=== PATIENT | male | born 1995 | race Caucasian/White ===

== ENCOUNTER 2023-12-21 16:48 | Emergency (ER) | payer SELFPAY ==
[2023-12-21 17:10] VITALS: BP 159/90; PULSE 71; TEMP 37.1; O2SAT 100; BMI 33.6
== END 2023-12-21 18:13 | disposition left against medical advice (07) ==
PROVIDERS: Emergency Provider Emergency Medicine
DX: Z53.21 Procedure and treatment not carried out due to patient leaving prior to being seen by health care provider (principal)

== ENCOUNTER 2023-12-24 17:05 | Emergency (ER) | payer SELFPAY ==
[2023-12-24 17:20] VITALS: BP 175/100; PULSE 70; TEMP 37; O2SAT 95; BMI 33.0
--- NOTE | 2023-12-24 20:51 | ED.SKABFB1 ---
HPI - Skin/Abscess/Foreign Bdy General Chief complaint: Skin/Abscess/Foreign Body Stated complaint: RASH Time Seen by Provider: 12/24/23 17:32 Source: patient Mode of arrival: walk-in Limitations: no limitations History of Present Illness HPI narrative: . presents with rash that started btw his butt cheeks and he thought it was a heat rash. Started about 3 months ago and has now spread to his genitals. mild itching . no abdominal pain Related Data Home Medications ?Medication ?Instructions ?Recorded ?Confirmed No Known Home Medications 12/21/23 12/24/23 Allergies Allergy/AdvReac Type Severity Reaction Status Date / Time No Known Drug Allergies Allergy Verified 12/24/23 17:19 Review of Systems ROS Status of ROS 10 or more systems reviewed and unremarkable except as noted in history and below Exam Constitutional Vital Signs, click to edit/add: Last Vital Signs Temp 98.6 F 12/24/23 17:20 Pulse 70 12/24/23 17:20 Resp 18 12/24/23 17:20 BP 175/100 H 12/24/23 17:20 Pulse Ox 95 12/24/23 17:20 O2 Del Method Room Air 12/24/23 17:20 Common normals: no apparent distress, average body habitus, oriented x3, no limitations, healthy appearing, alert and well nourished [facility] Common normals: normocephalic and head/scalp atraumatic Eye Common normals: EOMs intact bilaterally and conjunctivae normal Respiratory Common normals: normal respiratory effort, no retractions and no use of accessory muscles GI Common normals: Normal to inspection, nondistended, normoactive bowel sounds present and soft to palpation Other: tinea rash of genitalia and btw buttocks Extremity Common normals: normal to inspection and full ROM Neuro Common normals: oriented x3, CN's II-XII intact bilaterally, moves all extremities and no focal motor deficits Psych Appearance: grossly normal Course Vital Signs Vital signs: Vital Signs Temperature 98.6 F 12/24/23 17:20 Pulse Rate 70 12/24/23 17:20 Respiratory Rate 18 12/24/23 17:20 Blood Pressure 175/100 H 12/24/23 17:20 Pulse Oximetry 95 12/24/23 17:20 Oxygen Delivery Method Room Air 12/24/23 17:20 Temperature 98.6 F 12/24/23 17:20 Pulse Rate 70 12/24/23 17:20 Respiratory Rate 18 12/24/23 17:20 Blood Pressure 175/100 H 12/24/23 17:20 Pulse Oximetry 95 12/24/23 17:20 Oxygen Delivery Method Room Air 12/24/23 17:20 MDM - Skin/Abscess/Foreign Bdy MDM Narrative Medical decision making narrative: patient presents with tinea rash ongoing for past 3 months and slowly spreading from his buttocks to his genitalia. will plan to treat with combination of fluconazole and Mycolog 2 cream Discharge Plan Discharge Stand Alone Forms: Portal Instructions Chief Complaint: Skin/Abscess/Foreign Body Clinical Impression: Tinea corporis Patient Disposition: Home, Self-Care Prescriptions / Home Meds: No Action No Known Home Medications Print Language: Faroese Instructions: Tinea Corporis (ED) Referrals: Physician,Non-Staff, [Primary Care Provider] - 1 week
== END 2023-12-24 21:07 | disposition home or self-care (01) ==
PROVIDERS: Emergency Provider Internal Medicine
DX: B35.4 Tinea corporis (principal)
CPT/HCPCS: 99283

== ENCOUNTER 2024-01-15 23:56 | Emergency (ER) | payer SELFPAY ==
[2024-01-16 00:14] VITALS: BP 188/97; PULSE 94; TEMP 36.8; O2SAT 97
--- NOTE | 2024-01-16 00:56 | PC.NURSE ---
States Jock itch that has improved but remains. Seen here for it , feels like he needs a little more prescription medicine
--- NOTE | 2024-01-16 01:13 | ED_ITS ---
HPI - Skin/Abscess/Foreign Bdy General Chief complaint: Skin/Abscess/Foreign Body Stated complaint: male issues Time Seen by Provider: 01/16/24 01:08 Source: patient Mode of arrival: walk-in Limitations: no limitations History of Present Illness HPI narrative: seen here about 3 weeks ago. At that visit found to have tinea infection between his buttocks, on his scrotum and phallus. Returns now stating he is much better but still has rash around the base of his crown.States he ran out of medication and wanted a refill. No urinary symptoms Related Data Home Medications ?Medication ?Instructions ?Recorded ?Confirmed No Known Home Medications 12/21/23 12/24/23 Allergies Allergy/AdvReac Type Severity Reaction Status Date / Time No Known Drug Allergies Allergy Verified 01/16/24 00:18 Review of Systems ROS Status of ROS 10 or more systems reviewed and unremark able except as noted in history and below Exam Constitutional Vital Signs, click to edit/add: Last Vital Signs Temp 98.3 F 01/16/24 00:14 Pulse 94 H 01/16/24 00:14 Resp 16 01/16/24 00:14 BP 188/97 H 01/16/24 00:14 Pulse Ox 97 01/16/24 00:14 O2 Del Method Room Air 01/16/24 00:14 Common normals: no apparent distress, average body habitus, oriented x3, no limitations, healthy appearing, alert and well nourished [facility] Common normals: normocephalic and head/scalp atraumatic Eye Common normals: PERRL and EOMs intact bilaterally Respiratory Common normals: normal respiratory effort, no retractions and no use of accessory muscles GI Common normals: Normal to inspection, nondistended, normoactive bowel sounds present Other: erythematous band around base of the crown Extremity Common normals: normal to inspection and full ROM Neuro Common normals: oriented x3, CN's II-XII intact bilaterally, moves all extremities and no focal motor deficits Psych Appearance: grossly normal Course Vital Signs Vital signs: Vital Signs Temperature 98.3 F 01/16/24 00:14 Pulse Rate 94 H 01/16/24 00:14 Respiratory Rate 16 01/16/24 00:14 Blood Pressure 188/97 H 01/16/24 00:14 Pulse Oximetry 97 01/16/24 00:14 Oxygen Delivery Method Room Air 01/16/24 00:14 Temperature 98.3 F 01/16/24 00:14 Pulse Rate 94 H 01/16/24 00:14 Respiratory Rate 16 01/16/24 00:14 Blood Pressure 188/97 H 01/16/24 00:14 Pulse Oximetry 97 01/16/24 00:14 Oxygen Delivery Method Room Air 01/16/24 00:14 MDM - Skin/Abscess/Foreign Bdy MDM Narrative Medical decision making narrative: patient presents with tinea cruris. has rash limited to the base of his crown. No urinary symptoms. Seen 3 weeks ago for similar rash that was more widespread and included his phallus, btw his buttocks and on his scrotum. Now rash is just limited to the phallus but his medication has run out. Discharged with prescrip tion for ketoconazole cream and Diflucan. advised to follow up with his doctor for recheck Discharge Plan Discharge Stand Alone Forms: Portal Instructions Chief Complaint: Skin/Abscess/Foreign Body Clinical Impression: Tinea cruris Patient Disposition: Home, Self-Care Prescriptions / Home Meds: No Action No Known Home Medications Print Language: Brazilian Instructions: Skin Yeast Infection (ED) Additional Instructions: follow up with your doctor next week Referrals: Physician,Non-Staff, MD [Primary Care Provider] - 1 week
== END 2024-01-16 01:25 | disposition home or self-care (01) ==
PROVIDERS: Emergency Provider Internal Medicine
DX: B35.6 Tinea cruris (principal)
CPT/HCPCS: 99283

== ENCOUNTER 2025-02-26 15:24 | Inpatient (IN) | payer SELFPAY ==
[2025-02-26] VITALS (8 sets, daily range): BP systolic 129–162; BP diastolic 79–100; PULSE 69–87; TEMP 36.6–36.8; O2SAT 96–97; BMI 34.3; BMI 35.7
[2025-02-26] MEDS: 0.9 % SODIUM CHLORIDE 1,000 ML 999 ML IV (15:54)
[2025-02-26] MEDS: KETOROLAC TROMETHAMINE 30 MG/ML VIAL IVP (15:54)
--- NOTE | 2025-02-26 15:58 | ED_ITS ---
HPI - Abdominal Pain General Chief Complaint: Abdominal Pain Stated Complaint: STOMACH PAIN Time Seen by Provider: 02/26/25 15:34 Source: patient and family Mode of arrival: walk-in Limitations: no limitations History of Present Illness HPI narrative: 29-year-old male with no significant past medical history presents with mid- abdominal cramping and pressure-like pain that began this morning upon waking. Pain is intermittent through today, baseline 3/10, peaking at 8/10 during episodes that last a few minutes and occasionally radiate to lower abdomen. No nausea or vomiting until arrival; reports one episode of nausea that improved with Zofran. Denies bowel or urinary changes, fever, chest pain, shortness of breath, lightheadedness, or dizziness. No recent dietary changes. Drinks alcohol daily, denies drug use, smokes daily. Started taking a probiotic 5 days ago. Related Data Home Medications ?Medication ?Instructions ?Recorded ?Confirmed No Known Home Medications 12/21/2302/12 Allergies Allergy/AdvReac Type Severity Reaction Status Date / Time No Known Drug Allergies Allergy Verified 02/26/25 15:35 PFSH PFSH Social History Little interest or pleasure in doing things: not at all Feeling down, depressed, or hopeless: not at all Exam Narrative Exam Narrative: General: Alert, oriented ?3, no acute distress HEENT: Oral mucosa moist, no signs of dehydration Cardiac: Regular rate and rhythm, no murmurs Respiratory: Lungs clear to auscultation bilaterally Abdomen: Tenderness to palpation in the epigastric region and just umbilical no rebound or guarding, no lower abdominal tenderness, nondistended Extremities: Normal sensation, no edema Neuro: Mentating at baseline, gait normal Skin: Warm, dry, no jaundice Constitutional Vital Signs, click to edit/add: Last Vital Signs Temp 98.3 F 02/26/25 15:35 Pulse 78 02/26/25 17:30 Resp 18 02/26/25 17:30 BP 162/86 H 02/26/25 17:30 Pulse Ox 97 02/26/25 17:30 O2 Del Method Room Air 02/26/25 17:30 Course Vital Signs Vital signs: Vital Signs Temperature 98.3 F 02/26/25 15:35 Pulse Rate 87 02/26/25 15:35 Respiratory Rate 18 02/26/25 15:35 Blood Pressure 161/100 H 02/26/25 15:35 Pulse Oximetry 97 02/26/25 15:35 Oxygen Delivery Method Room Air 02/26/25 15:35 Temperature 98.3 F 02/26/25 15:35 Pulse Rate 78 02/26/25 17:30 Respiratory Rate 18 02/26/25 17:30 Blood Pressure 162/86 H 02/26/25 17:30 Pulse Oximetry 97 02/26/25 17:30 Oxygen Delivery Method Room Air 02/26/25 17:30 MDM - Abdominal Pain MDM Narrative Medical decision making narrative: 29-year-old male presenting with acute onset epigastric pain and nausea x 1 day. Labs show mild transaminitis and imaging consistent with acute pancreatitis, likely alcohol-related given daily use and absence of gallstones or biliary obstruction on CT. CT does show findings consistent acute pancreatitis. No evidence of complications (necrosis, pseudocyst, perforation) at this time. Pain medication, NS 0.9%, and antiemetics. Patient remains NPO. Morgan criteria (admission): * Age < 55 = 0 points * WBC < 16,000 = 0 points * Glucose < 200 = 0 points * AST > 250 = 0 points Total: 0 points at admission = predicts mild pancreatitis. Discussed case with Dr. Leonard (ED attending) and Dr. Ring (hospitalist), who accepted admission. Patient counseled on importance of alcohol cessation and need for hospitalization for IV hydration, pain control, and monitoring of electrolytes and labs. 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 Differential Diagnosis Differential diagnosis: Likely abdominal pain, acute appendicitis, calculus of kidney, constipation, diverticulitis, gastroenteritis, pancreatitis and small bowel obstruction Medical Records Attestation: I reviewed the patient's medical records. Lab Data Attestation: I reviewed the patient's lab results. Labs: Lab Results 02/26/25 Range/Units 15:44 WBC 6.6 (4.0-11.0) 10^3/uL RBC 5.05 (4.70-6.10) 10^6/uL Hgb 16.7 (14.0-18.0) g/dL Hct 45.2 (42.0-54.0) % MCV 89.5 (80.0-94.0) fL MCH 33.1 (25.9-34.0) pg MCHC 36.9 H (29.9-35.2) g/dL RDW 12.6 (11.0-15.0) % Plt Count 153 (150-450) 10^3/uL MPV 11.5 (9.5-13.5) fL Neut % (Auto) 76.2 H (43.0-75.0) % Lymph % (Auto) 13.8 L (20.5-60.0) % Kimble % (Auto) 8.0 (1.7-12.0) % Eos % (Auto) 1.2 (0.9-7.0) % Baso % (Auto) 0.5 (0.2-2.0) % Neut # (Auto) 5.0 (1.4-6.5) 10^3/uL Lymph # (Auto) 0.9 L (1.2-3.8) 10^3/uL Kimble # (Auto) 0.5 (0.3-0.8) 10^3/uL Eos # (Auto) 0.1 (0.0-0.7) 10^3/uL Baso # (Auto) 0.0 (0.0-0.1) 10^3/uL Abs Immat Gran (auto) 0.02 (0.00-0.03) 10^3/uL Imm/Tot Granulo (auto) 0.3 (0.0-0.5) % Sodium 135 L (136-145) mmol/L Potassium 3.8 (3.5-5.1) mmol/L Chloride 100 (98-107) mmol/L Carbon Dioxide 29.0 (21.0-32.0) mmol/L Anion Gap 9.8 BUN 10.0 (7.0-18.0) mg/dL Creatinine 0.94 (0.70-1.30) mg/dL Est GFR ( Amer) >60 (>=60 mL/min/1.73m^2) Est GFR (Non-Af Amer) >60 (>=60 mL/min/1.73m^2) BUN/Creatinine Ratio 10.6 Glucose 111 H (74-106) mg/dL Calcium 9.5 (8.5-10.1) mg/dL Total Bilirubin 0.6 (0.2-1.0) mg/dL AST 79 H (15-37) U/L ALT 114 H (16-63) U/L Alkaline Phosphatase 135 H (46-116) U/L Total Protein 8.0 (6.4-8.2) g/dL Albumin 4.1 (3.4-5.0) g/dL Globulin 3.9 g/dL Albumin/Globulin Ratio 1.1 Lipase 550.0 H (16.0-77.0) U/L Urine Color Lt. yellow (YELLOW) Urine Clarity Clear (CLEAR) Urine pH 6.5 (5.0-9.0) Ur Specific [place] <=1.005 A (1.005-1.025) Urine Protein Negative (NEG/TRACE) mg/dL Urine Glucose (UA) Negative (NEGATIVE) mg/dL Urine Ketones Negative (NEGATIVE) mg/dL Urine Occult Blood Negative (NEGATIVE) Urine Nitrite Negative (NEGATIVE) Urine Bilirubin Negative (NEGATIVE) Urine Urobilinogen 0.2 (0.2-1.0) EU/dL Ur Leukocyte Esterase Negative (NEGATIVE) Urine RBC None seen (0-2) #/HPF Urine WBC None seen (NONE SEEN) #/HPF Ur Squamous Epith Cells Rare (NONE/RARE) #/LPF Urine Crystals None seen (None Seen) #/HPF Urine Bacteria None seen (NONE SEEN) #/HPF Urine Casts None seen (NONE SEEN) #/LPF Urine Mucus None seen (NONE SEEN) Ur Culture Indicated? No Ethanol Quant 60 mg/dL Imaging Data CT scan - abdomen: Attestation: I have reviewed the pertinent imaging results. Radiologist's impression: ITS Impressions Abdomen/Pelvis CT 02/26/25 16:58 IMPRESSION: There is peripancreatic edema consistent with acute pancreatitis. This is greatest along the head of the pancreas. The liver is hypoattenuating suggesting hepatic steatosis. No bowel obstruction or obstructive uropathy. Impression dictated by: Donte Soto M.D. 02/26/2025 5:37 PM Dictation Location: [place] [address] Electronically authenticated by: [id number] Y Date: 02/26/2025 17:37 Discharge Plan Discharge Chief Complaint: Abdominal Pain Clinical Impression: Pancreatitis, acute, Alcohol use disorder Patient Disposition: Admitted As Inpatient Time of Disposition Decision: 18:10 Condition: Good
--- OUTSIDE RECORDS SUMMARY | 2025-02-26 16:25 | XMS_ITS | Patient Health Record ---
Author Organization [facility] es Address [address] [place] [address] Care Team Providers Care Account Support Specialist Name Role Phone Des Irby Unavailable [phone] Reason For Referral No Information Plan Of Treatment No Information
--- OUTSIDE RECORDS SUMMARY | 2025-02-26 16:25 | XMS_ITS | Clinical Summary ---
Author Organization [facility] tem Address [id number] [address] 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 10 tablet 3 Active Social History Tobacco Use Types Packs/Day Years Used Date Smoking Tobacco: Every Day Cigarettes Smokeless Tobacco: Never Tobacco Cessation:Ready to Q uit: Not Asked; Counseling Given: Not Answered Alcohol Use Standard Drinks/Week Comments Yes 0 (1 standard drink = 0.6 oz pur e alcohol) Childcare Answer Date Recorded Childcare Unknown 11/23/2018 Employment Answer Date Recorded Employment Unknown 11/23/2018 Hunger Screening Answer Date Recorded Within the past 12 months we worried whether our food would run out before we got money to buy more. Never True 04/22/2023 Within the past 12 months th e food we bought just didn't last and we didn't have money to get more. Never True 04/22/2023 Sex and Gender Information Value Date Recorded Sex Assigned at Not on file Legal Sex Male 3:20 PM EDT Gender Identity Not on file Sexual Orientation Not on file Last Filed Vital Signs Vital Sign Reading Time Taken Comments Blood Pressure 138/77 04/22/2023 8:14 PM EST Pulse 77 04/22/2023 8:14 PM EST Temperature 36.8 C (98.3 F) 04/22/2023 6:17 PM EST Respiratory Rate 17 04/22/2023 8:14 PM EST Oxygen Saturation 98% 04/22/2023 8:14 PM EST Inhaled Oxygen Concentration - - Weight 99.3 kg (219 lb) 11/13/2020 6:06 PM EDT Height 182.9 cm (6') 11/13/2020 6:06 PM EDT Body Mass Index 29.7 11/13/2020 6:06 PM EDT Plan of Treatment Not on file Medical Devices Not on file Insurance [facility] Care Teams Sole Rounding Machine Operator Relationship Specialty Start Date End Date Services, [facility] [address] [place] PCP - General Family Medicine 04/22/23
[2025-02-26 16:29] LABS: Hematocrit 45.2 % (42.0-54.0); Hemoglobin 16.7 g/dL (14.0-18.0); Immature Granulocytes Abs Auto 0.02 10^3/uL (0.00-0.03); Immature Granulocytes Pct Auto 0.3 % (0.0-0.5); Lymphocytes Absolute Auto 0.9 10^3/uL (1.2-3.8); Mean Corpuscular HGB Conc 36.9 g/dL (29.9-35.2); Mean Corpuscular Hemoglobin 33.1 pg (25.9-34.0); Mean Corpuscular Volume 89.5 fL (80.0-94.0); Platelet Count 153 10^3/uL (150-450); Red Blood Count 5.05 10^6/uL (4.70-6.10); White Blood Count 6.6 10^3/uL (4.0-11.0)
[2025-02-26 16:31] LABS: Glucose Urine UA NEGATIVE (NEGATIVE)
[2025-02-26 16:51] LABS: Cast Seen? NONE SEEN #/LPF (NONE SEEN); Crystals Seen? None Seen #/HPF (None Seen); Urine Culture Indicated NO
[2025-02-26 16:52] LABS: Alanine Aminotransferase 114 U/L (16-63); Albumin Level 4.1 g/dL (3.4-5.0); Alkaline Phosphatase 135 U/L (46-116); Anion Gap 9.8; Aspartate Amino Transferase 79 U/L (15-37); Blood Urea Nitrogen 10.0 mg/dL (7.0-18.0); Calcium 9.5 mg/dL (8.5-10.1); Carbon Dioxide 29.0 mmol/L (21.0-32.0); Chloride 100 mmol/L (98-107); Estimated GFR (African America >60 (>=60 mL/min/1.73m^2); Estimated GFR (Non-African Ame >60 (>=60 mL/min/1.73m^2); Globulin 3.9 g/dL; Glucose 111 mg/dL (74-106); Potassium 3.8 mmol/L (3.5-5.1); Sodium 135 mmol/L (136-145); Total Protein 8.0 g/dL (6.4-8.2)
[2025-02-26 16:53] LABS: Albumin Globulin Ratio 1.1; Lipase 550.0 U/L (16.0-77.0)
--- NOTE | 2025-02-26 16:58 | CT_ITS ---
[address] [address] Patient Name: GINNA BAEZA MRN: [id number] date: 1995 Sex: M Assigned Patient Location: ER Current Patient Location: ER Accession/Order Number: [id number] Exam Date: 02/26/2025 17:11 Report Date: 02/26/2025 17:37 At the request of: JAYLA WALTERS Procedure: CT abdomen pelvis w con CT abdomen pelvis w con 02/26/2025 5:15 PM SIGNS AND SYMPTOMS: ^elevated lipase ab pain \S.br\ TECHNIQUE: Multidetector ct axial images of the abdomen and pelvis were obtained with IV contrast. Multiplanar reformats were performed and reviewed to further define anatomy and possible pathology. CT was performed with one or more of the following dose reduction techniques: Automated exposure control, adjustment of the mA and/or kV according to patient size, or use of iterative reconstruction technique. COMPARISON: 11/27/2021 FINDINGS: Lower Chest: Within normal limits. ABDOMEN: Liver: The liver is hypoattenuating suggesting hepatic steatosis. Bile Ducts: Normal caliber. Gallbladder: No calcified gallstones. Normal caliber wall. Pancreas: There is peripancreatic edema consistent with acute pancreatitis. This is greatest along the head of the pancreas. Spleen: Within normal limits. Adrenals: Within normal limits. Kidneys: Within normal limits. Pelvis: Reproductive Organs: No pelvic masses. Ureters: Within normal limits. Bladder: Within normal limits. Bowel: Normal caliber. There is a normal appendix in the right lower quadrant. Mesenteric Lymph Nodes: No enlarged mesenteric lymph nodes. Peritoneum: No ascites or free air, no fluid collection. Vessels: within normal limits Retroperitoneum: Within normal limits. Abdominal Wall: Within normal limits. Bones: Degenerative changes are noted in the thoracolumbar spine. There is a levoconvex curvature of the lumbar spine. There is a transitional S1 vertebral body segment. CT/CT abdomen pelvis w con IMPRESSION: There is peripancreatic edema consistent with acute pancreatitis. This is greatest along the head of the pancreas. The liver is hypoattenuating suggesting hepatic steatosis. No bowel obstruction or obstructive uropathy. Impression dictated by: Donte Soto M.D. 02/26/2025 5:37 PM Dictation Location: [place] [address] Electronically authenticated by: [id number] Y Date: 02/26/2025 17:37
[2025-02-26] MEDS: DICYCLOMINE HCL 10 MG CAPSULE 20 MG PO (17:35)
[2025-02-26] MEDS: HYDROMORPHONE HCL 0.5 MG/0.5 ML SYRINGE IVP (18:40)
[2025-02-26 18:50] LABS: Magnesium 2.0 mg/dL (1.8-2.4)
--- OUTSIDE RECORDS SUMMARY | 2025-02-26 19:00 | XMS_ITS | CCD ---
Author Organization [facility] Care Team Providers Care Carrier Operator Name Role Phone DR ANTONELLA FRAIRE Admitting Unavailable JUNO, DR ANTONELLA Mckeon Consulting Unavailable DR ANTONELLA FRAIRE Attending Unavailable AYANNA, DR DUARTE Mckeon Consulting Unavailable JIMENEZ MAX Consulting Unavailable Problems Problem Classification Problem Date Documented Da te Episodic/Chronic Gastrointestinal hemorrhage (1 source) Hematemesis; Translations: [HEMATEMESIS] Onset: 12-04-2021 Episodic Nausea and vomiting (3 sources) Vomiting, unspecified; Translations: [VOMITING UNSPECIFIED] Onset: 11-27-2021 Episodic Substance-related disorders (1 source) Nicotine dependence, cigarettes, uncomplicated; Translations: [NICOTINE DEPEND CIGARETTES UNCOMP] Onset: 12-04-2021 Chronic Results Test Name Value Interpretation Reference Range Facil ity ACETAMINOPHENon 11-27-2021 Acetaminophen [Mass/Vol] ug/mL Critically low 10.0-30.0 [facility] Comment on above: Performed By: #### A CET #### [facility] [address] [place] [address] Dr. Mac Mccoy CBC AUTO DIFFon 11-27-2021 BASO # 0.0 103/ul Normal 0.0-0.1 [facility] Comment on above: Performed By: #### C BC #### [facility] [address] [place] [address] Dr. Mac Mccoy Basophils/100 WBC (Bld) 0.5 % Normal 0.2-2.0 [facility] Comment on above: Performed By: #### C BC #### [facility] [address] [place] [address] Dr. Mac Mccoy EO # 0.1 103/ul Normal 0.0-0.7 [facility] Comment on above: Performed By: #### C BC #### [facility] [address] [place] [address] Dr. Mac Mccoy Eosinophils/100 WBC (Bld) 1.7 % Normal 0.9-7.0 [facility] Comment on above: Performed By: #### C BC #### [facility] [address] [place] [address] Dr. Mac Mccoy Erythrocyte distribution width (RBC) [Ratio] 11.9 % Normal 11.0-15.0 [facility] Comment on above: Performed By: #### C BC #### [facility] [address] [place] [address] Dr. Mac Mccoy Hematocrit (Bld) [Volume fraction] 47.8 % Normal 42.0-54.0 [facility] Comment on above: Performed By: #### C BC #### [facility] [address] [place] [address] Dr. Mac Mccoy Hemoglobin (Bld) [Mass/Vol] 16.8 g/dL Normal 14.0-18.0 [facility] Comment on above: Performed By: #### C BC #### [facility] [address] [place] [address] Dr. Mac Mccoy IG # 0.03 10e3/ul Normal 0.00-0.03 [facility] Comment on above: Performed By: #### C BC #### [facility] [address] [place] [address] Dr. Mac Mccoy IG % 0.4 % Normal 0.0-0.5 [facility] Comment on above: Performed By: #### C BC #### [facility] [address] [place] [address] Dr. Mac Mccoy LYMPH # 1.3 103/ul Normal 1.2-3.8 [facility] Comment on above: Performed By: #### C BC #### [facility] [address] [place] [address] Dr. Mac Mccoy Lymphocytes/100 WBC (Bld) 15.0 % Critically low 20.5-60.0 [facility] Comment on above: Performed By: #### C BC #### [facility] [address] [place] [address] Dr. Mac Mccoy MANUAL DIFF REQ NO Normal [facility] Comment on above: Performed By: #### C BC #### [facility] [address] [place] [address] Dr. Mac Mccoy MCH (RBC) [Entitic mass] 31.2 pg Normal 25.9-34.0 [facility] Comment on above: Performed By: #### C BC #### [facility] [address] [place] [address] Dr. Mac Mccoy MCHC (RBC) [Mass/Vol] 35.1 g/dL Normal 29.9-35.2 [facility] Comment on above: Performed By: #### C BC #### [facility] [address] [place] [address] Dr. Mac Mccoy MCV (RBC) [Entitic vol] 88.7 fL Normal 80.0-94.0 [facility] Comment on above: Performed By: #### C BC #### [facility] [address] [place] [address] Dr. Mac Mccoy MONO # 0.5 103/ul Normal 0.3-0.8 [facility] Comment on above: Performed By: #### C BC #### [facility] [address] [place] [address] Dr. Mac Mccoy Monocytes/100 WBC (Bld) 6.4 % Normal 1.7-12.0 [facility] Comment on above: Performed By: #### C BC #### [facility] [address] [place] [address] Dr. Mac Mccoy NEUT # 6.3 103/ul Normal 1.4-6.5 [facility] Comment on above: Performed By: #### C BC #### [facility] [address] [place] [address] Dr. Mac Mccoy Neutrophils/100 WBC (Bld) 76.0 % Critically high 43.0-75.0 [facility] Comment on above: Performed By: #### C BC #### [facility] [address] [id number] [address] Mac Mccoy Platelet mean volume (Bld) [Entitic vol] 11.3 fL Normal 9.5-13.5 [facility] Comment on above: Performed By: #### C BC #### [facility] [address] [address] [address] Mac Mccoy PLT 158 103/ul Normal 150-450 [facility] Comment on above: Performed By: #### C BC #### [facility] [address] [address] [address] Mac Mccoy RBC 5.39 106/ul Normal 4.70-6.10 [facility] Comment on above: Performed By: #### C BC #### [facility] [address] [address] [address] Mac Mccoy WBC 8.3 103/ul Normal 4.0-11.0 [facility] Comment on above: Performed By: #### C BC #### [facility] [address] [address] [address] ABD/PELVIS WO CONon 11-27 CT ABD/PELVIS WO CON EXAMINATION: CT ABD/PELVIS WO CON HISTORY: NAUSEA WITH VOMITING, UNSPECIFIED ; lower abdominal pain, hematemesis COMPARISON: No relevant comparison available. TECHNIQUE: Axial, Coronal, and Sagittal images were created without IV contrast. Dose reduction techniques were achieved by using automated exposure control and/or adjustment of mA and/or kV according to patient size and/or use of iterative reconstruction technique. FINDINGS: LUNG BASES: No visible pulmonary or pleural disease. LIVER: No enlargement, atrophy, suspicious density, or significant focal lesion. BILIARY: No dilatation or calcification. PANCREAS: No lesion, fluid collection, or abnormal duct dilatation. SPLEEN: Enlarged, 16.8 cm. ADRENALS: No mass or enlargement. KIDNEYS: No mass, obstruction, or calcification. BOWEL/MESENTERY: No visible mass, obstruction, or bowel wall thickening. AORTA/VASCULAR: No aneurysm or dissection. RETROPERITONEUM: No mass or adenopathy. LYMPH NODES: No adenopathy. URINARY BLADDER: No visible focal wall thickening, lesion, or calculus. PELVIC ORGANS: No visible mass. Pelvic organs appropriate for patient age. ABDOMINAL WALL: No mass or hernia. BONES: Mild left convex curvature lumbar spine, slight reversal of the normal lordotic curvature of the upper lumbar spine and developmental partial lumbarization of S1. No bony lesion or fracture. OTHER: Negative. IMPRESSION: 1. Mild splenomegaly of uncertain etiology. 2. Unremarkable bowel. 3. No acute or suspicious abdominal or pelvic findings to account for patient's symptoms. Electronically authenticated by: DUARTE URENA Date: 2021-11-27 06:45 Normal [facility] ETHANOL (BLD ALC)on 11-28-19 22 ALC NOTE NOTE: 80 mg/dl is the legal limit for a blood alcohol level Normal [facility] Comment on above: Performed By: #### E TH #### [facility] [address] [place] [address] Dr. Mac Mccoy Ethanol [Mass/Vol] 34 mg/dL Normal [facility] Comment on above: Performed By: #### E TH #### [facility] [address] [place] [address] Dr. Mac Mccoy HEMOGLOBIN AND HEMATOCRITon 11-27-2021 Hematocrit (Bld) [Volume fraction] 43.4 % Normal 42.0-54.0 [facility] Comment on above: Performed By: #### H GBHCT #### [facility] [address] [place] [address] Dr. Mac Mccoy Hemoglobin (Bld) [Mass/Vol] 15.1 g/dL Normal 14.0-18.0 [facility] Comment on above: Performed By: #### H GBHCT #### [facility] [address] [place] [address] Dr. Mac Mccoy PROF 14(COMP METB)on 022 Albumin [Mass/Vol] 4.9 g/dL Normal 3.4-5.0 [facility] Comment on above: Performed By: #### C MP #### [facility] [address] [place] [address] Dr. Mac Mccoy Albumin/Globulin [Mass ratio] 1.4 {ratio} Normal [facility] Comment on above: Performed By: #### C MP #### [facility] [address] [place] [address] Dr. Mac Mccoy ALP [Catalytic activity/Vol] 101 U/L Normal 46-116 [facility] Comment on above: Performed By: #### C MP #### [facility] [address] [place] [address] Dr. Mac Mccoy ALT [Catalytic activity/Vol] 64 U/L Critically high 16-63 [facility] Comment on above: Performed By: #### C MP #### [facility] [address] [address] [address] Mac Mccoy Anion gap [Moles/Vol] 17.3 mmol/L Normal [facility] Comment on above: Performed By: #### C MP #### [facility] [address] [place] [address] Dr. Mac Mccoy AST [Catalytic activity/Vol] 33 U/L Normal 15-37 [facility] Comment on above: Performed By: #### C MP #### [facility] [address] [place] [address] Dr. Mac Mccoy Bilirubin [Mass/Vol] 0.6 mg/dL Normal 0.2-1.0 [facility] Comment on above: Performed By: #### C MP #### [facility] [address] [place] [address] Dr. Mac Mccoy Calcium [Mass/Vol] 10.0 mg/dL Normal 8.5-10.1 [facility] Comment on above: Performed By: #### C MP #### [facility] [address] [place] [address] Dr. Mac Mccoy Chloride [Moles/Vol] 97 mmol/L Critically low 98-107 [facility] Comment on above: Performed By: #### C MP #### [facility] [address] [place] [address] Dr. Mac Mccoy CO2 [Moles/Vol] 26.8 mmol/L Normal 21.0-32.0 [facility] Comment on above: Performed By: #### C MP #### [facility] [address] [place] [address] Dr. Mac Mccoy Creatinine [Mass/Vol] 2.14 mg/dL Critically high 0.70-1.30 [facility] Comment on above: Performed By: #### C MP #### [facility] [address] [address] [address] Mac Mccoy EGFR-AF MOZAMBICAN 45 mL/min/1.73m2 Critically low >=60 [facility] Comment on above: Performed By: #### C MP #### [facility] [address] [address] [address] Mac Mccoy EGFR-NON AF MOZAMBICAN 38 mL/min/1.73m2 Critically low >=60 [facility] Comment on above: Performed By: #### C MP #### [facility] [address] [address] [address] Mac Mccoy Globulin (S) [Mass/Vol] 3.6 g/dL Normal [facility] Comment on above: Performed By: #### C MP #### [facility] [address] [address] [address] Mac Mccoy Glucose [Mass/Vol] 101 mg/dL Normal 74-106 [facility] Comment on above: Performed By: #### C MP #### [facility] [address] [address] [address] Mac Mccoy Potassium [Moles/Vol] 3.1 mmol/L Critically low 3.5-5.1 [facility] Comment on above: Performed By: #### C MP #### [facility] [address] [address] [address] Mac Mccoy Protein [Mass/Vol] 8.5 g/dL Critically high 6.4-8.2 [facility] Comment on above: Performed By: #### C MP #### [facility] [address] [address] [address] Mac Mccoy Sodium [Moles/Vol] 138 mmol/L Normal 136-145 [facility] Comment on above: Performed By: #### C MP #### [facility] [address] [address] [address] Mac Mccoy Urea nitrogen [Mass/Vol] 13.0 mg/dL Normal 7.0-18.0 [facility] Comment on above: Performed By: #### C MP #### [facility] [address] [place] [address] Dr. Mac Mccoy Urea nitrogen/Creatinine [Mass ratio] 6.1 mg/mg Normal [facility] Comment on above: Performed By: #### C MP #### [facility] [address] [place] [address] Dr. Mac Mccoy PROTIMEon 11-27-2021 INR Coag (PPP) [Relative time] 0.99 {INR} Normal [facility] Comment on above: Performed By: #### P T, PTT #### [facility] [address] [place] [address] Dr. Mac Mccoy INR GUIDELINES SEE BELOW Normal The [facility] Comment on above: Result Comment: SOM RED INR: 2.0 - 3.0 CONDITIONS NOT LISTED BELOW 2.5 - 3.5 FOR PROSTHETIC HEART VALVE REPLACEMENT 2.5 - 3.5 RECURRENT THROMBOSIS Performed By: #### P T, PTT #### [facility] [address] [place] [address] Dr. Mac Mccoy PT Coag (PPP) [Time] 10.7 s Normal 9.0-11.6 [facility] Comment on above: Performed By: #### P T, PTT #### [facility] [address] [place] [address] Dr. Mac Mccoy PTTon 11-27-2021 aPTT Coag (Bld) [Time] 26.6 s Normal 22.3-36.2 [facility] Comment on above: Performed By: #### P T, PTT #### [facility] [address] [place] [address] Dr. Mac Mccoy SALICYLATEon 11-27-2021 SALICYLATE <2.8 Normal <=19.9 [facility] Comment on above: Performed By: #### S ALYC #### [facility] [address] [place] [address] Dr. Mac Mccoy TYPE AND SCREENon 11-27-2021 TYPE AND SCREEN Negative Normal [facility] Comment on above: Performed By: #### T NS #### [facility] [address] [id number] [address] Mac Mccoy Encounters Encounter Date Encounter Type Care Provider Facility Start: 11-27-2021 End: 11-27-[address] ANTONELLA FRAIRE Facility:[facility] Payers Date Payer Category Payer Unknown [id number] 1959 Private Health Insurance [id number] Summary Purpose Family History No Family History Records Found Advance Directives No Advanced Directives Records Found Additional Source Comments (unrecognized sect ion and content) No Status Records Found INFORMATION SOURCE (unrecogn ized section and content) DATE CREATED AUTHOR 12/04/2021 [facility] FOR RECORDS PERTAINING TO PATIENTS WHO ARE OR HAVE BEEN ENROLLED IN A CHEMICAL DEPENDENCY/SUBSTANCEABUSE PROGRAM, SOME INFORMATION MAY BE OMITTED. This clinical summary was aggregated from multiple sources. Caution should be exercised in using it in the provision of clinical care. This summary normalizes information from multiple sources, and as a consequence, information in this document may materially change the coding, format and clinical context of patient data. In addition, data may be omitted in some cases. CLINICAL DECISIONS SHOULD BE BASED ON THE PRIMARY CLINICAL RECORDS. [employer] provides no warranty or guarantee of the accuracy or completeness of information in this document.
--- NOTE | 2025-02-26 19:29 | PC.NURSE ---
Patient report given to RYAN Love at 2740
--- OUTSIDE RECORDS SUMMARY | 2025-02-26 19:32 | XMS_ITS | CCD ---
Author Organization [facility] Care Team Providers Care Wrecking Car Driver Name Role Phone DR ANTONELLA FRAIRE Admitting [...] 11-27-2021 Acetaminophen [Mass/Vol] ug/mL Critically low 10.0-30.0 [facility] Comment on above: Performed By: #### A CET #### [facility] [address] [place] [address] Dr. Mac Mccoy CBC AUTO DIFFon 11-27-2021 BASO # 0.0 103/ul Normal 0.0-0.1 [facility] Comment on above: Performed By: #### C BC #### [facility] [address] [place] [address] Dr. Mac Mccoy Basophils/100 WBC (Bld) 0.5 % Normal 0.2-2.0 [facility] Comment on above: Performed By: #### C BC #### [facility] [address] [place] [address] Dr. Mac Mccoy EO # 0.1 103/ul Normal 0.0-0.7 [facility] Comment on above: Performed By: #### C BC #### [facility] [address] [place] [address] Dr. Mac Mccoy Eosinophils/100 WBC (Bld) 1.7 % Normal 0.9-7.0 [facility] Comment on above: Performed By: #### C BC #### [facility] [address] [place] [address] Dr. Mac Mccoy Erythrocyte distribution width (RBC) [Ratio] 11.9 % Normal 11.0-15.0 [facility] Comment on above: Performed By: #### C BC #### [facility] [address] [place] [address] Dr. Mac Mccoy Hematocrit (Bld) [Volume fraction] 47.8 % Normal 42.0-54.0 [facility] Comment on above: Performed By: #### C BC #### [facility] [address] [place] [address] Dr. Mac Mccoy Hemoglobin (Bld) [Mass/Vol] 16.8 g/dL Normal 14.0-18.0 [facility] Comment on above: Performed By: #### C BC #### [facility] [address] [place] [address] Dr. Mac Mccoy IG # 0.03 10e3/ul Normal 0.00-0.03 [facility] Comment on above: Performed By: #### C BC #### [facility] [address] [place] [address] Dr. Mac Mccoy IG % 0.4 % Normal 0.0-0.5 [facility] Comment on above: Performed By: #### C BC #### [facility] [address] [place] [address] Dr. Mac Mccoy LYMPH # 1.3 103/ul Normal 1.2-3.8 [facility] Comment on above: Performed By: #### C BC #### [facility] [address] [place] [address] Dr. Mac Mccoy Lymphocytes/100 WBC (Bld) 15.0 % Critically low 20.5-60.0 [facility] Comment on above: Performed By: #### C BC #### [facility] [address] [place] [address] Dr. Mac Mccoy MANUAL DIFF REQ NO Normal [facility] Comment on above: Performed By: #### C BC #### [facility] [address] [place] [address] Dr. Mac Mccoy MCH (RBC) [Entitic mass] 31.2 pg Normal 25.9-34.0 [facility] Comment on above: Performed By: #### C BC #### [facility] [address] [place] [address] Dr. Mac Mccoy MCHC (RBC) [Mass/Vol] 35.1 g/dL Normal 29.9-35.2 [facility] Comment on above: Performed By: #### C BC #### [facility] [address] [place] [address] Dr. Mac Mccoy MCV (RBC) [Entitic vol] 88.7 fL Normal 80.0-94.0 [facility] Comment on above: Performed By: #### C BC #### [facility] [address] [place] [address] Dr. Mac Mccoy MONO # 0.5 103/ul Normal 0.3-0.8 [facility] Comment on above: Performed By: #### C BC #### [facility] [address] [place] [address] Dr. Mac Mccoy Monocytes/100 WBC (Bld) 6.4 % Normal 1.7-12.0 [facility] Comment on above: Performed By: #### C BC #### [facility] [address] [place] [address] Dr. Mac Mccoy NEUT # 6.3 103/ul Normal 1.4-6.5 [facility] Comment on above: Performed By: #### C BC #### [facility] [address] [place] [address] Dr. Mac Mccoy Neutrophils/100 WBC (Bld) 76.0 % Critically high 43.0-75.0 [facility] Comment on above: Performed By: #### C BC #### [facility] [address] [id number] [address] Mac Mccoy Platelet mean volume (Bld) [Entitic vol] 11.3 fL Normal 9.5-13.5 [facility] Comment on above: Performed By: #### C BC #### [facility] [address] [address] [address] Mac Mccoy PLT 158 103/ul Normal 150-450 [facility] Comment on above: Performed By: #### C BC #### [facility] [address] [address] [address] Mac Mccoy RBC 5.39 106/ul Normal 4.70-6.10 [facility] Comment on above: Performed By: #### C BC #### [facility] [address] [address] [address] Mac Mccoy WBC 8.3 103/ul Normal 4.0-11.0 [facility] Comment on above: Performed By: #### C BC #### [facility] [address] [address] ABD/PELVIS WO CONon [...] DUARTE URENA Date: 2021-11-27 06:45 Normal [facility] ETHANOL (BLD ALC)on 11-28-19 22 ALC NOTE NOTE: 80 mg/dl is the legal limit for a blood alcohol level Normal [facility] Comment on above: Performed By: #### E TH #### [facility] [address] [place] [address] Dr. Mac Mcocy Ethanol [Mass/Vol] 34 mg/dL Normal [facility] Comment on above: Performed By: #### E TH #### [facility] [address] [place] [address] Dr. Mac Mccoy HEMOGLOBIN AND HEMATOCRITon 11-27-2021 Hematocrit (Bld) [Volume fraction] 43.4 % Normal 42.0-54.0 [facility] Comment on above: Performed By: #### H GBHCT #### [facility] [address] [place] [address] Dr. Mac Mccoy Hemoglobin (Bld) [Mass/Vol] 15.1 g/dL Normal 14.0-18.0 [facility] Comment on above: Performed By: #### H GBHCT #### [facility] [address] [place] [address] Dr. Mac Mccoy PROF 14(COMP METB)on 022 Albumin [Mass/Vol] 4.9 g/dL Normal 3.4-5.0 [facility] Comment on above: Performed By: #### C MP #### [facility] [address] [place] [address] Dr. Mac Mccoy Albumin/Globulin [Mass ratio] 1.4 {ratio} Normal [facility] Comment on above: Performed By: #### C MP #### [facility] [address] [place] [address] Dr. Mac Mccoy ALP [Catalytic activity/Vol] 101 U/L Normal 46-116 [facility] Comment on above: Performed By: #### C MP #### [facility] [address] [place] [address] Dr. Mac Mccoy ALT [Catalytic activity/Vol] 64 U/L Critically high 16-63 [facility] Comment on above: Performed By: #### C MP #### [facility] [address] [address] [address] Mac Mccoy Anion gap [Moles/Vol] 17.3 mmol/L Normal Th [facility] Comment on above: Performed By: #### C MP #### [facility] [address] [place] [address] Dr. Mac Mccoy AST [Catalytic activity/Vol] 33 U/L Normal 15-37 [facility] Comment on above: Performed By: #### C MP #### [facility] [address] [place] [address] Dr. Mac Mccoy Bilirubin [Mass/Vol] 0.6 mg/dL Normal 0.2-1.0 [facility] Comment on above: Performed By: #### C MP #### [facility] [address] [place] [address] Dr. Mac Mccoy Calcium [Mass/Vol] 10.0 mg/dL Normal 8.5-10.1 [facility] Comment on above: Performed By: #### C MP #### [facility] [address] [place] [address] Dr. Mac Mccoy Chloride [Moles/Vol] 97 mmol/L Critically low 98-107 [facility] Comment on above: Performed By: #### C MP #### [facility] [address] [place] [address] Dr. Mac Mccoy CO2 [Moles/Vol] 26.8 mmol/L Normal 21.0-32.0 [facility] Comment on above: Performed By: #### C MP #### [facility] [address] [place] [address] Dr. Mac Mccoy Creatinine [Mass/Vol] 2.14 mg/dL Critically high 0.70-1.30 [facility] Comment on above: Performed By: #### C MP #### [facility] [address] [address] [address] Mac Mccoy EGFR-AF [place] 45 mL/min/1.73m2 Critically low >=60 [facility] Comment on above: Performed By: #### C MP #### [facility] [address] [address] [address] Mac Mccoy EGFR-NON AF [place] 38 mL/min/1.73m2 Critically low >=60 [facility] Comment on above: Performed By: #### C MP #### [facility] [address] [address] [address] Mac Mccoy Globulin (S) [Mass/Vol] 3.6 g/dL Normal [facility] Comment on above: Performed By: #### C MP #### [facility] [address] [address] [address] Mac Mccoy Glucose [Mass/Vol] 101 mg/dL Normal 74-106 [facility] Comment on above: Performed By: #### C MP #### [facility] [address] [address] [address] Mac Mccoy Potassium [Moles/Vol] 3.1 mmol/L Critically low 3.5-5.1 [facility] Comment on above: Performed By: #### C MP #### [facility] [address] [address] [address] Mac Mccoy Protein [Mass/Vol] 8.5 g/dL Critically high 6.4-8.2 [facility] Comment on above: Performed By: #### C MP #### [facility] [address] [address] [address] Mac Mccoy Sodium [Moles/Vol] 138 mmol/L Normal 136-145 [facility] Comment on above: Performed By: #### C MP #### [facility] [address] [address] [address] Mac Mccoy Urea nitrogen [Mass/Vol] 13.0 mg/dL Normal 7.0-18.0 [facility] Comment on above: Performed By: #### C MP #### [facility] [address] [place] [address] Dr. Mac Mccoy Urea nitrogen/Creatinine [Mass ratio] 6.1 mg/mg Normal [facility] Comment on above: Performed By: #### C MP #### [facility] [address] [place] [address] Dr. Mac Mccoy PROTIMEon 11-27-2021 INR Coag (PPP) [Relative time] 0.99 {INR} Normal [facility] Comment on above: Performed By: #### P T, PTT #### [facility] [address] [place] [address] Dr. Mac Mccoy INR GUIDELINES SEE BELOW Normal [facility] Comment on above: Result Comment: SOM RED INR: 2.0 - 3.0 CONDITIONS NOT LISTED BELOW 2.5 - 3.5 FOR PROSTHETIC HEART VALVE REPLACEMENT 2.5 - 3.5 RECURRENT THROMBOSIS Performed By: #### P T, PTT #### [facility] [address] [place] [address] Dr. Mac Mccoy PT Coag (PPP) [Time] 10.7 s Normal 9.0-11.6 [facility] Comment on above: Performed By: #### P T, PTT #### [facility] [address] [place] [address] Dr. Mac Mccoy PTTon 11-27-2021 aPTT Coag (Bld) [Time] 26.6 s Normal 22.3-36.2 [facility] Comment on above: Performed By: #### P T, PTT #### [facility] [address] [place] [address] Dr. Mac Mccoy SALICYLATEon 11-27-2021 SALICYLATE <2.8 Normal <=19.9 [facility] Comment on above: Performed By: #### S ALYC #### [facility] [address] [place] [address] Dr. Mac Mccoy TYPE AND SCREENon 11-27-2021 TYPE AND SCREEN Negative Normal [facility] Comment on above: Performed By: #### T NS #### [facility] [address] [id number] [address] Mac Mccoy Encounters Encounter Date Encounter Type Care Provider Facility Start: 11-27-2021 End: 11-27-[address] ANTONELLA FRAIRE Facility:[facility] Payers Date Payer Category Payer Unknown [id number] 1959 Private Health Insurance [id number] Summary Purpose Family History No Family History Records Found Advance Directives No Advanced Directives Records Found Additional Source Comments (unrecognized sect ion and content) No Status Records Found INFORMATION SOURCE (unrecogn ized section and content) DATE CREATED AUTHOR 12/04/2021 [facility] FOR RECORDS PERTAINING TO PATIENTS WHO ARE [...] BE BASED ON THE PRIMARY CLINICAL RECORDS. [employer] provides no warranty or guarantee of the accuracy or completeness of information in this document.
[2025-02-26] MEDS: ENOXAPARIN SODIUM 40 MG/0.4 ML SYRINGE SUBQ (20:48)
[2025-02-26] MEDS: METOPROLOL TARTRATE 25 MG TABLET PO (20:48)
[2025-02-26] MEDS: PANTOPRAZOLE SODIUM 40 MG VIAL IV (20:49)
[2025-02-26] MEDS: FOLIC ACID 50 MG/10 ML VIAL IVP (20:49)
[2025-02-26] MEDS: THIAMINE HCL 200 MG/2 ML VIAL IVP (20:49)
[2025-02-27] VITALS (14 sets, daily range): BP systolic 142–155; BP diastolic 74–95; PULSE 63–75; TEMP 36.8; O2SAT 94–97
[2025-02-27] MEDS: PANTOPRAZOLE SODIUM 40 MG TABLET.DR PO (05:44)
[2025-02-27 05:50] LABS: Hematocrit 40.1 % (42.0-54.0); Hemoglobin 14.1 g/dL (14.0-18.0); Immature Granulocytes Abs Auto 0.02 10^3/uL (0.00-0.03); Immature Granulocytes Pct Auto 0.4 % (0.0-0.5); Lymphocytes Absolute Auto 1.0 10^3/uL (1.2-3.8); Mean Corpuscular HGB Conc 35.2 g/dL (29.9-35.2); Mean Corpuscular Hemoglobin 31.7 pg (25.9-34.0); Mean Corpuscular Volume 90.1 fL (80.0-94.0); Platelet Count 122 10^3/uL (150-450); Red Blood Count 4.45 10^6/uL (4.70-6.10); White Blood Count 5.1 10^3/uL (4.0-11.0)
[2025-02-27 06:12] LABS: Alanine Aminotransferase 83 U/L (16-63); Albumin Globulin Ratio 1.0; Albumin Level 3.2 g/dL (3.4-5.0); Alkaline Phosphatase 103 U/L (46-116); Anion Gap 13.7; Aspartate Amino Transferase 54 U/L (15-37); Blood Urea Nitrogen 8.0 mg/dL (7.0-18.0); Calcium 8.6 mg/dL (8.5-10.1); Carbon Dioxide 27.4 mmol/L (21.0-32.0); Chloride 105 mmol/L (98-107); Cholesterol 236 mg/dL (<=200); Estimated GFR (African America >60 (>=60 mL/min/1.73m^2); Estimated GFR (Non-African Ame >60 (>=60 mL/min/1.73m^2); Globulin 3.2 g/dL; Glucose 97 mg/dL (74-106); HDL Cholesterol 51 mg/dL (40-60); Lipase 283.0 U/L (16.0-77.0); Magnesium 1.7 mg/dL (1.8-2.4); Potassium 4.1 mmol/L (3.5-5.1); Sodium 142 mmol/L (136-145); Total Protein 6.4 g/dL (6.4-8.2); Triglycerides 406 mg/dL (<=150); VLDL CHOLESTEROL 81.2 mg/dL
[2025-02-27] MEDS: SOD PHOSPHATE,MONOBASIC-DIBAS 30 MMOL in 0.9 % SODIUM CHLORIDE 250 ML 43.333 MMOL IV (08:33)
[2025-02-27] MEDS: FOLIC ACID 1 MG TABLET PO (08:33)
[2025-02-27] MEDS: THIAMINE HCL 200 MG/2 ML VIAL IVP ×2 (08:33→20:59)
[2025-02-27] MEDS: METOPROLOL TARTRATE 25 MG TABLET PO ×2 (08:33→20:59)
[2025-02-27] MEDS: MAGNESIUM SULFATE IN WATER 2 GM/50 ML PREMIX IV (09:01)
--- NOTE | 2025-02-27 09:05 | CM.NOTE ---
Addendum entered by Estephanie Hardy 02/28/25 09:57: No discharge needs identified for pt at this time. Pt will discharge to home self care. Original Note: Rounds made with Dr. Evans, discussed with pt reason for admission. Updated pt on AM labs, and CT scan. Continue to monitor lab work and continue treatment as ordered. Pt does state abdominal pain is improved and denies N/V today.
--- NOTE | 2025-02-27 09:48 | PM.HP ---
HPI H&P: HPI History of Present Illness Chief complaint: ACUTE PANCREATITIS ALCOHOL USE DISORDER Narrative: Mr. Salmon is a 29-year-old gentleman who came in with day or 2 history of progressive pain in the upper abdomen. Moderately severe, nausea, loss of appetite. No fever or chills. No vomiting. No diarrhea. Patient admitted that he drinks alcohol daily. He drinks few shots and beer. No chest pain. No shortness of breath. No fever or chills. No previous history of pancreatitis. Opioid HPI Opioid Management Most Recent Pain and Opioid Data: Last Pain Scale 2 Today, 08:57 Last Pain Assessment 02/26/25, 19:46 Last MAR Pain Assessment 02/26/25, 15:54 Last ORT Total Score 4 02/26/25, 19:34 Last ORT Risk Category Moderate Risk 02/26/25, 19:34 PFS PFS Medical History (Updated 02/27/25 @ 09:50 by Jammie Evans MD) Bipolar disorder ?F31.9 - Bipolar disorder, unspecified (ICD-10) ADHD (attention deficit hyperactivity disorder) ?F90.9 - Attention-deficit hyperactivity disorder, unspecified type (ICD-10) Family History (Updated 02/26/25 @ 19:28 by Kate Hooper, RYAN) Other Family history of CHF (congestive heart failure) Family history of cancer Family history of diabetes mellitus Family history of hypertension Family history of myocardial infarction Social History (Updated 02/26/25 @ 19:31 by Kate Hooper, RYAN) Within the past year, how often did you have a drink containing alcohol: 4 or more times a week Within the past year, how many standard drinks containing alcohol did you have on a typical day: 10 or more Within the past year, how often did you have six or more drinks on one occasion: daily or almost daily Total score: 12 Score interpretation: A score of 4 or more indicates drinking is likely to affect patient's safety. 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 Highest level of school completed/degree received: high school graduate Are you now , , , , never or living with a partner: living with partner Little interest or pleasure in doing things: not at all Feeling down, depressed, or hopeless: not at all Do you think of yourself as: straight/heterosexual Gender Identity: male Meds Home Medications and Allergies Home Medications ?Medication ?Instructions ?Recorded ?Confirmed ?Type No Known Home Medications 12/21/23 02/26/25 History Allergies Allergy/AdvReac Type Severity Reaction Status Date / Time No Known Drug Allergies Allergy Verified 02/26/25 15:35 Exam Narrative Exam Narrative: [pt is awake and alert. oriented to place, time and person HEENT: [place] conjunctiva and NL buccal mucosa Neck: Supple, no tenderness Endocrine: No Thyromegaly. Vascular: No JVD or carotid bruit. Lymphatic: No cervical lymphadenopathy. Chest: CTA no DTP. Heart RRR, no extra sound or murmur. Abd: Soft, moderate tenderness in the epigastric area. No rebound and no rigidity. Increase abd girth therefore clinically I could not exclude the possibility of intra abd mass or organomegaly. LE: No cyanosis or clubbing, no varices or edema. Neuro: A A O. Nl speech, comprehension and attention. Nl and symetrical motor and tone examination through out. []] Constitutional Vital Signs, click to edit/add: Last Vital Signs Temp 98.3 F 02/27/25 08:00 Pulse 74 02/27/25 08:00 Resp 16 02/27/25 08:00 BP 153/84 H 02/27/25 08:00 Pulse Ox 96 02/27/25 08:00 O2 Del Method Room Air 02/27/25 08:00 Results Labs Labs: Short CBC 02/26/25 02/27/25 Range/Units 15:44 05:20 WBC 6.6 5.1 (4.0-11.0) 10^3/uL Hgb 16.7 14.1 (14.0-18.0) g/dL Hct 45.2 40.1 L (42.0-54.0) % Plt Count 153 122 L (150-450) 10^3/uL BMP 02/26/25 02/27/25 15:44 05:20 Sodium 135 L 142 Potassium 3.8 4.1 Chloride 100 105 Carbon Dioxide 29.0 27.4 BUN 10.0 8.0 Creatinine 0.94 0.96 Glucose 111 H 97 Calcium 9.5 8.6 Liver Function 02/26/25 02/27/25 Range/Units 15:44 05:20 Total Bilirubin 0.6 0.5 (0.2-1.0) mg/dL AST 79 H 54 H (15-37) U/L ALT 114 H 83 H (16-63) U/L Alkaline Phosphatase 135 H 103 (46-116) U/L Albumin 4.1 3.2 L (3.4-5.0) g/dL Urine 02/26/25 Range/Units 15:44 Urine Color Lt. yellow (YELLOW) Urine Clarity Clear (CLEAR) Urine pH 6.5 (5.0-9.0) Ur Specific [place] <=1.005 A (1.005-1.025) Urine Protein Negative (NEG/TRACE) mg/dL Urine Glucose (UA) Negative (NEGATIVE) mg/dL Assessment and Plan Assessment and Plan (1) Alcohol use disorder: (2) Pancreatitis, acute: (3) High blood pressure: (4) Hypomagnesemia: (5) Hypophosphatemia: Plan Acute pancreatitis. Likely triggered by alcohol consumption. Triglyceride is 400. Unlikely to have caused pancreatitis. Normal appearance of the gallbladder and the common bile duct on CT. Unlikely gallbladder pancreatitis. Not on any medication that could trigger pancreatitis. Admission to the medical floor, IV fluid infusion, antiemetics and pain management. Hypomagnesemia and hypophosphatemia Magnesium and phosphate supplementation Alcohol dependency, abuse Counseling and education were provided I started patient on high-dose thiamine intravenous infusion and folic acid. Monitor for potential alcohol withdrawal syndrome. Elevated blood pressure. Unknown whether patient has hypertension or elevated blood pressure secondary to pain. Pain management, started patient on metoprolol 25 mg twice daily. Monitor blood pressure and adjust accordingly. Alcohol consumption reduction that would definitely help with elevated blood pressure. Elevated transaminase which is likely caused by acute alcoholic hepatitis Ordered INR to calculate Madrey's score. Normal bilirubin. Unlikely that he would benefit from a corticosteroid Monitor to trend Requested viral panel to exclude viral hepatitis panel. Other possible etiologies such as autoimmune, infiltrative or neoplastic liver disease could not be excluded. To be addressed in the outpatient setting. DVT prophy Lovenox subcu Patient is requesting to be discharged home. I spent about 10 to 15 minutes trying to convince him to stay for at least another day to ensure stability before discharge. He is in agreement to stay reluctantly. I hope he does not change his mind and decided to leave [place].
[2025-02-27 10:09] LABS: INR 0.98; Prothrombin Time 10.4 sec (9.0-11.6)
--- NOTE | 2025-02-27 10:24 | SWNOTE1 ---
SW met with pt to discuss alcohol use and self pay status. Pt was sitting on couch in room. SW did ask pt if he had insurance through his employer. He voiced he missed enrollment period last time, but plans on getting enrolled this time around. He is a true self pay at this time. He voiced he did fill out some paperwork that was given to him at hospital. SW did ask pt about his drinking and if he was a daily drinker. Pt voiced he does drink daily. He stated this hospital stay was a wake up call and he plans on reducing his drinking. He voiced the pain was terrible, but he is starting to feel better now. SW asked if he would like any resources, such as AA meetings, to assist with his drinking? Pt voiced he does not need any. SW asked if he has good support at home? He voiced he does have good support. Pt has no other questions/concerns at this time. SW to follow as needed.
--- NOTE | 2025-02-27 10:28 | SWNOTE1 ---
SW did reach out to María Elena, patient financial counselor, and pt has already completed form for them and they are aware he is self pay.
[2025-02-27] MEDS: OXYCODONE HCL 5 MG TABLET PO (17:05)
[2025-02-27] MEDS: ENOXAPARIN SODIUM 40 MG/0.4 ML SYRINGE SUBQ (20:59)
[2025-02-28] VITALS: PULSE 74
[2025-02-28 01:39] VITALS: PULSE 71
[2025-02-28 03:39] VITALS: BP 151/84; PULSE 75; TEMP 37.6; O2SAT 94
[2025-02-28 03:46] VITALS: PULSE 74
[2025-02-28] MEDS: PANTOPRAZOLE SODIUM 40 MG TABLET.DR PO (05:36)
[2025-02-28 05:44] LABS: Hematocrit 40.1 % (42.0-54.0); Hemoglobin 14.0 g/dL (14.0-18.0); Immature Granulocytes Abs Auto 0.01 10^3/uL (0.00-0.03); Immature Granulocytes Pct Auto 0.2 % (0.0-0.5); Lymphocytes Absolute Auto 0.8 10^3/uL (1.2-3.8); Mean Corpuscular HGB Conc 34.9 g/dL (29.9-35.2); Mean Corpuscular Hemoglobin 31.7 pg (25.9-34.0); Mean Corpuscular Volume 90.9 fL (80.0-94.0); Platelet Count 107 10^3/uL (150-450); Red Blood Count 4.41 10^6/uL (4.70-6.10); White Blood Count 4.4 10^3/uL (4.0-11.0)
[2025-02-28 06:02] LABS: Alanine Aminotransferase 77 U/L (16-63); Albumin Globulin Ratio 1.0; Albumin Level 3.4 g/dL (3.4-5.0); Alkaline Phosphatase 123 U/L (46-116); Anion Gap 9.8; Aspartate Amino Transferase 49 U/L (15-37); Blood Urea Nitrogen 6.0 mg/dL (7.0-18.0); Calcium 9.0 mg/dL (8.5-10.1); Carbon Dioxide 30.6 mmol/L (21.0-32.0); Chloride 102 mmol/L (98-107); Estimated GFR (African America >60 (>=60 mL/min/1.73m^2); Estimated GFR (Non-African Ame >60 (>=60 mL/min/1.73m^2); Globulin 3.5 g/dL; Glucose 99 mg/dL (74-106); Lipase 97.0 U/L (16.0-77.0); Magnesium 1.9 mg/dL (1.8-2.4); Potassium 4.4 mmol/L (3.5-5.1); Sodium 138 mmol/L (136-145); Total Protein 6.9 g/dL (6.4-8.2)
--- NOTE | 2025-02-28 07:05 | P.DS_ITS ---
DS: Providers Provider Date of admission: 02/26/25 19:18 Primary care physician: Non-Staff Physician, DS: Diagnosis Discharge Diagnosis (1) Alcohol use disorder: (2) Pancreatitis, acute: (3) High blood pressure: (4) Hypomagnesemia: (5) Hypophosphatemia: Plan As listed above, below and others that are not listed DS: Summary Hospital Course Hospital Course: Mr. Salmon is a 29-year-old gentleman who came in with abdominal pain and nausea. He was found to have the following: Acute pancreatitis. Likely triggered by alcohol consumption. Triglyceride is 400. Unlikely to have caused pancreatitis. Normal appearance of the gallbladder and the common bile duct on CT. Unlikely gallbladder pancreatitis. Not on any medication that could trigger pancreatitis. Admission to the medical floor, IV fluid infusion, antiemetics and pain management. Patient is feeling much better. Resolution of the symptoms. Lipase is down. Patient is requesting to be discharged home. Patient is tolerating his diet. Hypomagnesemia and hypophosphatemia Magnesium and phosphate supplementation Alcohol dependency, abuse Counseling and education were provided I started patient on high-dose thiamine intravenous infusion and folic acid. Monitor for potential alcohol withdrawal syndrome. No thus far. Counseling and education to quit smoking. Elevated blood pressure. Unknown whether patient has hypertension or elevated blood pressure secondary to pain. Pain management, started patient on metoprolol 25 mg twice daily. Monitor blood pressure and adjust accordingly. Alcohol consumption reduction that would definitely help with elevated blood pressure. Patient will be discharged home on oral amlodipine 2.5 mg daily to be adjusted, titrated, added on, dilated in the outpatient setting to keep blood pressure under control Elevated transaminase which is likely caused by acute alcoholic hepatitis Normal INR and normal bilirubin. Madrey score is low unlikely that he would benefit from a corticosteroid Monitor to trend. Transaminases are trending in the positive direction Requested viral panel to exclude viral hepatitis panel. Pending. To be followed up in the outpatient setting Other possible etiologies such as autoimmune, infiltrative or neoplastic liver disease could not be excluded. To be addressed in the outpatient setting. DVT prophy Lovenox subcu Patient has few issues as listed above and others that are not listed. All appear to be stable. I do not have any clear or strong clinical justification to extend inpatient hospitalization. Patient however will require close and frequent monitoring as well as additional work-up, investigation and therapeutic intervention that could take place from this point on post discharge. That is to prevent relapse, decompensation, rehospitalization and other medical implications. I instructed patient to ask her primary care doctor to obtain [facility] record entirely to address abnormalities seen on labs and imaging that I have and have not addressed during this hospitalization, follow-up on pending blood work, imaging and pathology is if available and to follow-up on needed medical care in the outpatient setting. Time Spent with Patient Time attestation: Total time spent providing and/or coordinating discharge services: Exam Constitutional Vital Signs, click to edit/add: Last Vital Signs Temp 99.6 F 02/28/25 03:39 Pulse 74 02/28/25 03:46 Resp 18 02/28/25 03:39 BP 151/84 H 02/28/25 03:39 Pulse Ox 94 L 02/28/25 03:39 O2 Del Method Room Air 02/28/25 03:39 DS: Data Data Completed and Pending Labs on day of discharge: Labs from last 24 hours 02/28/25 02/26/25 05:35 15:44 WBC 4.4 RBC 4.41 L Hgb 14.0 Hct 40.1 L MCV 90.9 MCH 31.7 MCHC 34.9 RDW 12.7 Plt Count 107 L MPV 10.3 Neut % (Auto) 72.5 Lymph % (Auto) 17.0 L [place] % (Auto) 7.5 Eos % (Auto) 2.3 Baso % (Auto) 0.5 Neut # (Auto) 3.2 Lymph # (Auto) 0.8 L [place] # (Auto) 0.3 Eos # (Auto) 0.1 Baso # (Auto) 0.0 Abs Immat Gran (auto) 0.01 Imm/Tot Granulo (auto) 0.2 PT 10.4 INR 0.98 Sodium 138 Potassium 4.4 Chloride 102 Carbon Dioxide 30.6 Anion Gap 9.8 BUN 6.0 L Creatinine 0.94 Est GFR ( Amer) >60 Est GFR (Non-Af Amer) >60 BUN/Creatinine Ratio 6.4 Glucose 99 Calcium 9.0 Phosphorus 3.6 Magnesium 1.9 Total Bilirubin 0.7 AST 49 H ALT 77 H Alkaline Phosphatase 123 H Total Protein 6.9 Albumin 3.4 Globulin 3.5 Albumin/Globulin Ratio 1.0 Lipase 97.0 H Discharge Plan Discharge Disposition: Home, Self-Care Condition: Good Discharge Medications: New acetaminophen [Tylenol] 325 mg Tablet 650 mg PO Q6H PRN (Reason: Pain or fever) Qty: 0 0RF folic acid 1 mg Tablet 1 mg PO QD Qty: 30 0RF thiamine HCl (vitamin B1) 100 mg tablet 100 mg PO BID Qty: 20 0RF amlodipine 2.5 mg tablet 2.5 mg PO DAILY Qty: 30 0RF Print Language: Serbian Activity Restrictions/Additional Instructions: I may not have addressed or treated all of your medical illnesses or the abnormal blood work or imaging studies during this hospitalization. Please ask your primary care provider to obtain [place] records entirely to follow up on all of the abnormal physical, laboratory, and imaging findings that I have not addressed. Please return back to the emergency room or seek medical attention if your symptoms worsen or return. Please avoid alcohol consumption and smoking. Please follow-up with your primary care doctor. Your blood pressure is elevated. I started you on a small dose of the blood pressure medication called amlodipine. This may need to be adjusted in the outpatient setting by your primary care doctor to keep your blood pressure under control. I requested viral hepatitis panel blood test that is still not resulted. Please ask your primary care doctor to follow-up on report Discharging you from [place] does not mean that your medical care ends here and now. You may still need additional monitoring, work up, investigation, and treatment plan to be handled from this point on by out patient providers including your primary care provider and specialists. For any medication question, please contact your retail pharmacist or your primary care provider. Thank you. Forms: Portal Instructions
[2025-02-28 07:52] VITALS: BP 158/84; PULSE 78; TEMP 36.9; O2SAT 93
--- NOTE | 2025-02-28 08:20 | CM.NOTE ---
Rounds made with Dr. Evans, pt will discharge to home. SW called pharmacy for cost of medications d/t pt not having insurance. Pt at this time does not have PCP, CM or SW will talk with pt about options and scheduling appt.
[2025-02-28] MEDS: THIAMINE HCL 200 MG/2 ML VIAL IVP (08:50)
[2025-02-28] MEDS: OXYCODONE HCL 5 MG TABLET PO (08:50)
[2025-02-28] MEDS: METOPROLOL TARTRATE 25 MG TABLET PO (08:50)
[2025-02-28] MEDS: FOLIC ACID 1 MG TABLET PO (08:50)
--- NOTE | 2025-02-28 09:30 | SWNOTE1 ---
KENNY called [facility] pharmacy and spoke with pharmacist. They did receive the prescriptions for all medications. She provided cost for each medication. $5.99, $8.43, $14.99, and $6.55 for all four medications, which is total of $35.96. The other medication is Tylenol. KENNY let case management know.
--- NOTE | 2025-02-28 09:58 | SWNOTE1 ---
KENNY stopped in to see pt. KENNY let pt know that [facility] and the total of his medications are $35.96. SW also let pt know it is important for him to follow up with a physician. KENNY provided pt with the [facility] website. SW pulled it up on phone and pt wrote down the website address. SW let him know to click new patient and to click new patient registration and fill out form online. [facility] will then review application and reach out to patient. Pt was worried about not having any insurance. KENNY advised that [facility] does take self pay patients. Pt voiced understanding. No further questions at this time.
--- NOTE | 2025-03-01 14:29 | CM.DCFOLLOWU ---
Person spoke with:patient How are you feeling? feeling pretty well How is your pain?none Did you understand your discharge instructions?yes Do you have any questions about your discharge instructions?no Were you given any prescriptions at discharge?yes Were you able to get your prescriptions filled? he is picking them up today Do you understand how to take your medications as ordered?yes Do you have any questions about your follow up appointment and do you plan to keep your follow up appointment? no questions. He has not had a chance to call [facility], but he will Is there anything else that you would like to discuss?no Questions/Comments/Concerns/Other:none
== END 2025-02-28 10:01 | disposition home or self-care (01) | DRG 440 ==
LOC: ER 18:29 → MS 19:27
PROVIDERS: Physician Assistant; Admitting Provider Internal Medicine; Emergency Provider Emergency Medicine; Visit Provider Internal Medicine
DX: K85.20 Alcohol induced acute pancreatitis without necrosis or infection (principal); Y90.3 Blood alcohol level of 60-79 mg/100 ml; E83.42 Hypomagnesemia; E83.39 Other disorders of phosphorus metabolism; F10.20 Alcohol dependence, uncomplicated; R03.0 Elevated blood-pressure reading, without diagnosis of hypertension; K70.10 Alcoholic hepatitis without ascites; F17.200 Nicotine dependence, unspecified, uncomplicated; R74.01 Elevation of levels of liver transaminase levels
CPT/HCPCS: 36415; 74177; 80053; 80061; 80074; 80320; 81001; 83690; 83721; 83735; 84100; 85025; 85610; 96374; 96375; 99285; 99406; J1171; J1650; J1885; J2405; J3411; J3475; Q9967

== ENCOUNTER 2025-05-05 15:27 | Emergency (ER) | payer SELFPAY ==
[2025-05-05 15:32] VITALS: BP 163/90; PULSE 111; TEMP 37.1; O2SAT 98; BMI 33.7
--- OUTSIDE RECORDS SUMMARY | 2025-05-05 15:36 | XMS_ITS | CCD ---
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 Name Role Phone DR ANTONELLA FRAIRE Admitting Unavailable JUNO, DR ANTONELLA Mckeon Consulting Unavailable DR ANTONELLA FRAIRE Attending Unavailable AYANNA, DR DUARTE Mckeon Consulting Unavailable JIMENEZ MAX Consulting Unavailable Problems Problem ClassificationProblemDateDocumented DateEpisodic/ChronicGastrointestinal hemorrhage (1 source)Hematemesis; Translations: [HEMATEMESIS]Onset: 83-20-2031Yzhhrwcm Nausea and vomiting (3 sources)Vomiting, unspecified; Translations: [VOMITING UNSPECIFIED]Onset: 53-78-9161LwxvrccdNkdiaqbws-related disorders (1 source)Nicotine dependence, cigarettes, uncomplicated; Translations: [NICOTINE DEPEND CIGARETTES UNCOMP]Onset: 60-16-3678Lpmeyql Results Test NameValueInterpretationReference RangeFacilityACETAMINOPHENon 11-27-2021 Acetaminophen [Mass/Vol]ug/mLCritically low10.0-30.0The [facility] HospitalComment on above:Performed By: #### ACET #### [facility] [address] [place] [address] Dr. Mac Holden AUTO DIFFon [id number] #0.0 103/ulNormal0.0-0.1The [facility] HospitalComment on above:Performed By: #### CBC #### [facility] [address] [place] [address] Dr. Mac Farooqsophils/100 WBC (Bld)0.5 %Normal0.2-2.0[facility] Comment on above:Performed By: #### CBC #### [facility] [address] [place] [address] Dr. Mac [place] #0.1 103/ulNormal0.0-0.7The [facility] HospitalComment on above: Performed By: #### CBC #### [facility] [address] [place] [address] Dr. Mac Santamariaosinophils/100 WBC (Bld)1.7 %Normal0.9-7.0The [facility] Comment on above:Performed By: #### CBC #### [facility] [address] [place] [address] Dr. Mac Santamariarythrocyte distribution width (RBC) [Ratio]11.9 %Wtfvkp40.0-15.0 The [facility] HospitalComment on above:Performed By: #### CBC #### [facility] [address] [place] [address] Dr. Mac MccoyHematocrit (Bld) [Volume fraction]47.8 %Kloupv92.0-54.0The [facility] HospitalComment on above:Performed By: #### CBC #### [facility] [address] [place] [address] Dr. Mac MccoyHemoglobin (Bld) [Mass/Vol]16.8 g/lQWadfhs55.0-18.0The [facility] HospitalComment on above:Performed By: #### CBC #### [facility] [address] [place] [address] Dr. Mac Peng #0.03 10e3/ulNormal0.00-0.03The [facility] HospitalComment on above:Performed By: #### CBC #### [facility] [address] [place] [address] Dr. Mac Peng %0.4 %Normal0.0-0.5The [facility] HospitalComment on above: Performed By: #### CBC #### [facility] [address] [place] [address] Dr. Mac DelgadoH #1.3 103/ulNormal1.2-3.8The [facility] HospitalComment on above:Performed By: #### CBC #### [facility] [address] [place] [address] Dr. Mac Calderónmphocytes/100 WBC (Bld)15.0 %Critically low20.5-60.0The [facility] HospitalComment on above:Performed By: #### CBC #### [facility] [address] [place] [address] Dr. Mac AugustUAL DIFF REQNONormalThe [facility] HospitalComment on above: Performed By: #### CBC #### [facility] [address] [place] [address] Dr. Mac Valera (RBC) [Entitic mass]31.2 ucGursfs90.9-34.0The [facility] HospitalComment on above:Performed By: #### CBC #### [facility] [address] [place] [address] Dr. Mac Valera (RBC) [Mass/Vol]35.1 g/kGVqnsyt12.9-35.2The [facility] HospitalComment on above:Performed By: #### CBC #### [facility] [address] [place] [address] Dr. Mac Valera (RBC) [Entitic vol]88.7 tLZqptjl66.0-94.0The [facility] HospitalComment on above:Performed By: #### CBC #### [facility] [address] [place] [address] Dr. Mac Mckeon #0.5 103/ulNormal0.3-0.8The [facility] HospitalComment on above:Performed By: #### CBC #### [facility] [address] [place] [address] Dr. Mac Terryocytes/100 WBC (Bld)6.4 %Normal1.7-12.0The [facility] Comment on above:Performed By: #### CBC #### [facility] [address] [place] [address] Dr. Mac Gibbs #6.3 103/ulNormal1.4-6.5The [facility] HospitalComment on above:Performed By: #### CBC #### [facility] [address] [address] [address] Mac Villanuevautrophils/100 WBC (Bld)76.0 %Critically high43.0-75.0The [facility] Hospitalment on above:Performed By: #### CBC #### [facility] [address] [place] [address] Dr. Mac MccoyPlatelet mean volume (Bld) [Entitic vol]11.3 fLNormal9.5-13.5The [facility] HospitalComment on above:Performed By: #### CBC #### [facility] [address] [place] [address] Dr. Mac MccoyPLT158 103/lpYzkxig630-401Sjr [facility] on above: Performed By: #### CBC #### [facility] [address] [place] [address] Dr. Mac MccoyRBC5.39 106/ulNormal4.70-6.10The [facility] HospitalCommclaren bay special care hospital on above:Performed By: #### CBC #### [facility] [address] [place] [address] Dr. Mac MccoyWBC8.3 103/ulNormal4.0-11.0The [facility] on above: Performed By: #### CBC #### [facility] [address] [place] [address] Dr. Mac MccoyCT ABD/PELVIS WO CONon [id number] ABD/PELVIS WO CONEXAMINATION: CT ABD/PELVIS WO CON HISTORY: NAUSEA WITH [...] Electronically authenticated by: DUARTE URENA Date: 2021-11-27 06:45[facility] Medical CenterETHANOL (BLD ALC)on [id number] NOTENOTE: 80 mg/dl is the legal limit for a blood alcohol levelUniversity Hospitals Samaritan Medical CenterComment on above:Performed By: #### ETH #### [facility] [address] [address] [address] Mac Santamariathanol [Mass/Vol]34 mg/dLNoLima Memorial HospitalComment on above:Performed By: #### ETH #### [facility] [address] [address] [address] Mac MccoyHEMOGLOBIN AND HEMATOCRITon 16-45-3184Budrbnitlo (Bld) [Volume fraction]43.4 %Wjpmkv66.0-54.0The [facility] HospitalCommclaren bay special care hospital on above:Performed By: #### HGBHCT #### [facility] [address] [address] [address] Mac MccoyHemoglobin (Bld) [Mass/Vol]15.1 g/yQUyjwyl95.0-18.0The [facility] HospitalCommclaren bay special care hospital on above:Performed By: #### HGBHCT #### [facility] [address] [place] [address] Dr. Mac MccoyPROF 14(COMP METB)on 72-33-8111Vkytxyx [Mass/Vol]4.9 g/dLNormal 3.4-5.0The [facility] HospitalComment on above:Performed By: #### CMP #### [facility] [address] [place] [address] Dr. Mac MccoyAlbumin/Globulin [Mass ratio]1.4 {ratio}NormalThe [facility] HospitalComment on above:Performed By: #### CMP #### [facility] [address] [address] [address] Mac De La Cruz [Catalytic activity/Vol]101 U/CLiwqrv18-860Qzz [facility] HospitalComment on above:Performed By: #### CMP #### [facility] [address] [place] [address] Dr. Mac NarayananT [Catalytic activity/Vol]64 U/LCritically bjkq65-55Exw [facility] HospitalComment on above:Performed By: #### CMP #### [facility] [address] [place] [address] Dr. Mac Bhagat gap [Moles/Vol]17.3 mmol/LNormalThe [facility] Comment on above:Performed By: #### CMP #### [facility] [address] [place] [address] Dr. Mac MccoyAST [Catalytic activity/Vol]33 U/GVcklxr10-11Evv [facility] HospitalComment on above:Performed By: #### CMP #### [facility] [address] [place] [address] Dr. Mac MccoyBilirubin [Mass/Vol]0.6 mg/dLNormal0.2-1.0The [facility] Comment on above:Performed By: #### CMP #### [facility] [address] [place] [address] Dr. Mac MccoyCalcium [Mass/Vol]10.0 mg/dLNormal8.5-10.1The [facility] Comment on above:Performed By: #### CMP #### [facility] [address] [place] [address] Dr. Mac MccoyChloride [Moles/Vol]97 mmol/LCritically srd24-858Non [facility] HospitalComment on above:Performed By: #### CMP #### [facility] [address] [address] [address] Mac MccoyCO2 [Moles/Vol]26.8 mmol/JWnoprr12.0-32.0The [facility] Comment on above:Performed By: #### CMP #### [facility] [address] [address] [address] Mac MccoyCreatinine [Mass/Vol]2.14 mg/dLCritically high0.70-1.30The [facility] HospitalComment on above:Performed By: #### CMP #### [facility] [address] [address] [address] Mac SantamariaGFR-AF RQDXISYV75 mL/min/1.65y9Qtzzbwsddo low>=60The [facility] HospitalComment on above:Performed By: #### CMP #### [facility] [address] [address] [address] Mac SantamariaGFR-NON AF JWPEFZOP11 mL/min/1.12x9Mfuvyirgym low>=60The [facility] HospitalComment on above:Performed By: #### CMP #### [facility] [address] [address] [address] Mac MccoyGlobulin (S) [Mass/Vol]3.6 g/dLNormalThe [facility] HospitalComment on above:Performed By: #### CMP #### [facility] [address] [address] [address] Mac MccoyGlucose [Mass/Vol]101 mg/nSCgkhdo66-275Cln [facility] Comment on above:Performed By: #### CMP #### [facility] [address] [address] [address] Mac MccoyPotassium [Moles/Vol]3.1 mmol/LCritically low3.5-5.1The [facility] on above:Performed By: #### CMP #### [facility] [address] [address] [address] Mac MccoyProtein [Mass/Vol]8.5 g/dLCritically high6.4-8.2The [facility] HospitalComment on above:Performed By: #### CMP #### [facility] [address] [place] [address] Dr. Mac Grissomdium [Moles/Vol]138 mmol/QFlkitd880-851AyfBlanchard Valley Health [facility] Comment on above:Performed By: #### CMP #### [facility] [address] [place] [address] Dr. Mac MccoyUrea nitrogen [Mass/Vol]13.0 mg/dLNormal7.0-18.0[facility] HospitalComment on above:Performed By: #### CMP #### [facility] [address] [place] [address] Dr. Mac Carnes nitrogen/Creatinine [Mass ratio]6.1 mg/mgNoLima Memorial HospitalComment on above:Performed By: #### CMP #### [facility] [address] [place] [address] Dr. Mac Garland 33-73-9539RIA Coag (PPP) [Relative time]0.99 {INR} NormalBlanchard Valley Health System [facility] HospitalCommclaren bay special care hospital on above:Performed By: #### PT, PTT #### [facility] [address] [place] [address] Dr. Mac Broussard GUIDELINESSEE BELOWUniversity Hospitals Samaritan Medical CenterComment on above:Result Comment: DESIRED INR: 2.0 - 3.0 CONDITIONS NOT LISTED BELOW 2.5 - 3.5 FOR PROSTHETIC HEART VALVE REPLACEMENT 2.5 - 3.5 RECURRENT THROMBOSIS Performed By: #### PT, PTT #### [facility] [address] [place] [address] Dr. Mac MccoyPT Coag (PPP) [Time]10.7 sNormal9.0-11.6The [facility] Comment on above:Performed By: #### PT, PTT #### [facility] [address] [place] [address] Dr. Mac Hernandez 27-95-0597zJRV Coag (Bld) [Time]26.6 iAxrmlo55.3-36.2The [facility] HospitalComment on above:Performed By: #### PT, PTT #### [facility] [address] [address] [address] Mac MccoySALICYLATEon 18-43-9132WIUTDGKRVN<2.8Normal<=19.9The [facility] HospitalComment on above:Performed By: #### SALYC #### [facility] [address] [address] [address] Mac MccoyTYPE AND SCREENon 00-44-6287NTHX AND SCREENNegativeNormalThe [facility] HospitalComment on above:Performed By: #### TNS #### [facility] [address] [address] [address] Mac Mccoy Encounters Encounter DateEncounter TypeCare ProviderFacilityStart: 11-27-2021 End: 35-43-9405aihrfngjysOD ANTONELLA Mckeon SMITHFacility:H1 Payers DatePayer CategoryPayerPoly [id number] [id number] Summary Purpose Family History No Family History Records Found Advance Directives No Advanced Directives Records Found Additional Source Comments (unrecognized sect ion and content) No Status Records Found INFORMATION SOURCE (unrecogn ized section and content) DATE CREATED AUTHOR 12/04/2021 [facility] FOR RECORDS PERTAINING TO PATIENTS WHO ARE [...] BE BASED ON THE PRIMARY CLINICAL RECORDS. [facility]. provides no warranty or guarantee of the accuracy or completeness of information in this document.
--- OUTSIDE RECORDS SUMMARY | 2025-05-05 15:37 | XMS_ITS | Clinical Summary ---
Author Organization [facility] tem Address [id number] [place] [address] Care Team Providers Care Exploration Driller Name Role Phone Services, [facility] Primary Care Provider Allergies No known active allergies Medications MedicationSigDispense QuantityRefillsLast FilledStart DateEnd DateStatus ondansetron ODT (ZOFRAN ODT) 4 mg disintegrating tablet Dissolve 1 tablet (4 mg total) on tongue every 8 (eight) hours as needed for nausea for up to 10 doses. 10 tablet 04/22/2023ctive Social History Tobacco UseTypesPacks/DayYears UsedDateSmoking Tobacco: Every DayCigarettes Smokeless Tobacco: Never Tobacco Cessation:Ready to Q uit: Not Asked; Counseling Given: Not Answered Alcohol UseStandard Drinks/WeekCommentsYes0 (1 standard drink = 0.6 oz pure alcohol)ChildcareAnswerDate XgzufueiQdmgjqdmlOrybquh23/12/2019EmploymentAnswer Date ZgimczmcNoymiiupqaLvbfkew25/12/2019Hunger ScreeningAnswerDate Recorded Within the past 12 months we worried whether our food would run out before we got money to buy more.Never True04/22/2023Within the past 12 months the food we bought just didn't last and we didn't have money to get more.Never True 04/22/2023Sex and Gender InformationValueDate RecordedSex Assigned at BirthNot on fileLegal LkkLqze5311/25/2016 3:20 PM EDTGender IdentityNot on fileSexual OrientationNot on file Last Filed Vital Signs Vital SignReadingTime TakenCommentsBlood Keytaqvo884/7704/22/2023 8:14 PM EST Vbcjq297904/22/2023 8:14 PM LRDTbeiloqecrr43.8 ??C (98.3 ??F)04/22/2023 6:17 PM ESTRespiratory Tkzu448106/22/2022 8:14 PM ESTOxygen Eldoykigqa03%04/22/2023 8:14 PM ESTInhaled Oxygen Concentration--Rnwdcm70.3 kg (219 lb)11/13/2020 6:06 PM EDT Edyilc206.9 cm (6')11/13/2020 6:06 PM EDTBody Mass Index29.706 6:06 PM EDT Plan of Treatment Not on file Medical Devices Not on file Insurance Care Teams Team MemberRelationshipSpecialtyStart DateEnd Date Services, [facility] [address] [place] [place], [place] PCP - GeneralFamily Gkxzkbzu79/9/23
--- NOTE | 2025-05-05 15:39 | ED.EYEPROB1 ---
HPI - Eye Problem General Chief complaint: Eye Problems Stated complaint: EYE INJURY Time Seen by Provider: 05/05/25 15:29 Source: patient Mode of arrival: walk-in Limitations: no limitations History of Present Illness HPI Narrative: Patient is a 29-year-old male who presents to the emergency department for an injury to the right eye that occurred 3 days ago at home. Patient states that his daughter poked him in the right eye with her finger. He has had redness, blurred vision and tearing to the eye without a loss of vision since. No swelling of the eyelids. No bleeding or drainage. No medications prior to arrival. He does not wear contact lenses Related Data Previous Rx's ?Medication ?Instructions ?Recorded diclofenac sodium 0.1 % eye drops 2 drp ophthalmic (eye) Q6H 2 days 05/05/25 #5 mL tobramycin 0.3 % eye drops 2 drp ophthalmic (eye) QID #5 mL 05/05/25 Allergies Allergy/AdvReac Type Severity Reaction Status Date / Time No Known Drug Allergies Allergy Verified 05/05/25 15:37 Review of Systems ROS Constitutional Denies: fever or chills Eyes Reports: blurry vision, eye discomfort and increased production of tears Cardiovascular Denies: chest pain Respiratory Denies: shortness of breath Gastrointestinal Denies: nausea or vomiting Integumentary/Breast Denies: rash Hematologic/Lymphatic Denies: easy bruising or easy bleeding PFSH PFSH Medical History (Updated 05/05/25 @ 15:56 by SELENA Martinez) Bipolar disorder ?F31.9 - Bipolar disorder, unspecified (ICD-10) ADHD (attention deficit hyperactivity disorder) ?F90.9 - Attention-deficit hyperactivity disorder, unspecified type (ICD-10) Family History (Updated 02/26/25 @ 19:28 by Kate Hooper RN) Other Family history of CHF (congestive heart failure) Family history of cancer Family history of diabetes mellitus Family history of hypertension Family history of myocardial infarction Social History Within the past year, how often did you have a drink containing alcohol: 4 or more times a week Within the past year, how many standard drinks containing alcohol did you have on a typical day: 10 or more Within the past year, how often did you have six or more drinks on one occasion: daily or almost daily Total score: 12 Score interpretation: A score of 4 or more indicates drinking is likely to affect patient's safety. 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 No periorbital edema. Normal extraocular muscle motion. Chambers lamp exam with negative [place] sign, [place] shaped corneal abrasion noted over the iris of the right eye anteriorly at the 9 o'clock position of the iris. Corneal abrasion extends to the edge of the pupil but does not appear over the pupil. Pupil is round, regular. Respiratory: No respiratory distress, speaks in full sentences Cardio: Regular rate and rhythm Skin: Warm and dry Neuro: No focal neurodeficits Psych: Normal mood and affect Constitutional Vital Signs, click to edit/add: Last Vital Signs Temp 98.7 F 05/05/25 15:32 Pulse 111 H 05/05/25 15:32 Resp 14 05/05/25 15:32 BP 163/90 H 05/05/25 15:32 Pulse Ox 98 05/05/25 15:32 O2 Del Method Room Air 05/05/25 15:32 Course Vital Signs Vital signs: Vital Signs Temperature 98.7 F 05/05/25 15:32 Pulse Rate 111 H 05/05/25 15:32 Respiratory Rate 14 05/05/25 15:32 Blood Pressure 163/90 H 05/05/25 15:32 Pulse Oximetry 98 05/05/25 15:32 Oxygen Delivery Method Room Air 05/05/25 15:32 Temperature 98.7 F 05/05/25 15:32 Pulse Rate 111 H 05/05/25 15:32 Respiratory Rate 14 05/05/25 15:32 Blood Pressure 163/90 H 05/05/25 15:32 Pulse Oximetry 98 05/05/25 15:32 Oxygen Delivery Method Room Air 05/05/25 15:32 MDM - Eye Problem MDM Narrative Medical decision making narrative: The right eye was anesthetized with tetracaine with significant improvement and stained with fluorescein. Corneal abrasion noted on Chambers lamp exam. Patient given tobramycin eyedrops and Voltaren for comfort for home. Follow-up with optometry and return to the ER if symptoms change or worsen. Medical Records Attestation: I reviewed the patient's medical records. Discharge Plan Discharge Chief Complaint: Eye Problems Clinical Impression: Corneal abrasion, Acute pain in right eye Patient Disposition: Home, Self-Care Time of Disposition Decision: 15:56 Condition: Good Prescriptions / Home Meds: New diclofenac sodium 0.1 % drops 2 drp ophthalmic (eye) Q6H 2 Days Qty: 5 0RF tobramycin 0.3 % drops 2 drp ophthalmic (eye) QID Qty: 5 0RF Print Language: Portuguese Instructions: Corneal Abrasion (ED) Additional Instructions: Please use tobramycin eye drops 4 times a day for 5 days and follow up with an eye doctor Referrals: ANTONELLA RAMÍREZ [Physician, Optometry] - As soon as possible Physician,Non-Staff, [Primary Care Provider] - 1 week Discharge Date/Time: 05/05/25 16:15
[2025-05-05] MEDS: TETRACAINE HCL 0.5% OP SOL 80 DROP/4 ML BOTTLE OP (16:13)
[2025-05-05] MEDS: FLUORESCEIN SODIUM 1 MG STRIP OP (16:13)
[2025-05-05] MEDS: TOBRAMYCIN 0.3% OP SOL 100 DROP/5 ML BOTTLE OP (16:14)
== END 2025-05-05 16:15 | disposition home or self-care (01) ==
PROVIDERS: Emergency Provider Emergency Medicine
DX: S05.01XA Injury of conjunctiva and corneal abrasion without foreign body, right eye, initial encounter (principal); H57.11 Ocular pain, right eye; F17.200 Nicotine dependence, unspecified, uncomplicated; X58.XXXA Exposure to other specified factors, initial encounter
CPT/HCPCS: 99283